=== PATIENT | female | born 1940 | race Caucasian/White ===

== ENCOUNTER 2020-07-11 13:08 | Inpatient (IN) | payer MEDICARE, SELFPAY ==
[2020-07-11] VITALS (12 sets, daily range): BP systolic 116–207; BP diastolic 66–113; PULSE 75–99; RESP 16–18; TEMP 36.2–37.2; O2SAT 95–100; BMI 28.7; BMI 29.2
--- NOTE | 2020-07-11 13:20 | ED.VIS.GEN ---
History of Present Illness Chief Complaint: Abd Pain Informant: Patient Narrative: Patient presented to the emergency department with left lower quadrant abdominal pain and nausea vomiting since last night. The patient states that she is having urinary frequency. She states she has not moved her bowels since a CAT scan on Tuesday. She is not sure why she had the CAT scan but states she was told that if she continues to have problems she should have a colonoscopy. She states that she has had a mass that was not cancerous removed was unsure of where that mass was at. She has never been to this facility before. She sees Dr. Ochoa for primary care. She feels fatigued. Patient recently (06/18/20) saw Dr. Leigh Ann Brooke at [facility] in [place], [place]. She was placed on steroids and she states that she is still on the steroids at this time I cannot tell me how much. Patient has not had her home medications today. Using [employer], I see that in December 2012 she had a laparotomy with resection of a large abdominal pelvic mass, extensive adhesional lysis, low anterior rectosigmoid resection, end-to-end stapled colorectal ostomy, diverting loop ileostomy, upper vaginectomy, omental ectomy, lymphadenectomy and biopsy of a liver nodule. 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 She has had colonoscopy March 2019 with a tubular adenoma. Hernia repair in 2014. EGD 2018 with severe esophagitis and intestinal metaplasia. June 18, 2020 patient was seen by gastroenterology. She was complaining of 6 months of pain in her epigastric area and fullness in the abdomen after eating food. She noted some weight loss. She has noted some rectal incontinence and pressure and had some bright red blood on toilet paper. According to the chart like they felt the pain was due to mesenteric-itis. She was started on prednisone. CT scan done on July 09, 2020 was read as mildly prominent cecum with relatively collapsed remainder of the colon. Oral contrast noted throughout the colon to the level of the rectum. Some noted possibility of a low-grade/partial obstructing process within the proximal ascending colon could not be excluded. Colonic wall thickening was felt to possibly be artifactual versus mild colitis. She has multiple lower thoracic and lumbar compression fractures. In December she had a white blood cell count of 17.6. Past Medical History - Allergies and Home Meds Allergies/Adverse Reactions: Allergies No Known Allergies Allergy (Verified 07/11/20 13:09) Primary Care Physician: Aneta Stewart SHOELACE TIPPING MACHINE OPERATOR, SHOELACE TIPPING MACHINE OPERATOR-C [NON-STAFF] - Review of Systems General: Reports: Malaise. Denies: Chills, Fever, Sweats Eyes: Denies: Visual changes - bilaterally, Diplopia ENT: Denies: Rhinorrhea, Sore throat Cardiovascular: Denies: Chest pain, Palpitations Respiratory: Denies: Dyspnea, Cough, Dyspnea on exertion Gastrointestinal: Reports: Abdominal pain, Nausea, Vomiting, Constipation. Denies: Diarrhea, Melena, Hematochezia Genitourinary: Denies: Dysuria, Hematuria, Frequency Musculoskeletal: Denies: Back pain, Extremity Pain Skin: Denies: Rash, Wounds Neurological: Denies: Headache, Weakness, Numbness Physical Exam Vital Signs/Narrative: Vital Signs Temp Pulse Resp BP Pulse Ox 07/11/20 13:09 97.4 F L 93 16 200/113 H 96 Inital Vital Signs reviewed: Yes General: Well nourished, Well developed, No Acute Distress Head: Normocephalic, Atraumatic Eyes: Perrl, EOMI ENT: Moist mucous membranes, No rhinorrhea Neck: Supple, Nontender Cardiovascular: Regular rate, Regular rhythm, No murmurs Respiratory: No distress, CTA bilaterally, Chest nontender Abdomen: Soft, Nondistended, Normal bowel sounds, Tender - LLQ. Negative for: Guarding, Rebound tenderness Back: Nontender, Normal Inspection Extremities: Nontender, No edema Skin: Normal color, No rash Neurological: Alert, Oriented x3, Cranial nerves II-XII grossly intact, Normal Strength, Normal Sensation Psychological: Normal affect, Normal Mood Diagnostic/Tx/Re-eval Clinical Impression(s) from Imaging Studies Abdomen/Pelvis CT 07/11/20 14:00 IMPRESSION: Mild to moderate degree of left hydronephrosis and left hydroureter due to a 6 mm calculus at the left UV junction. There is also evidence of a 3.2 mm calculus in the distal left ureter. Multiple tiny layering calculi at the base of the bladder. Multiple hepatic cysts. Multiple surgical interventions. Electronically Signed: Dieudonne Agee, at 14:58 EDT , Service support , Laboratory Last Values WBC 41.0 K/mm3 (4.4-11.0) H* 07/11/20 13:31 RBC 6.06 M/mm3 (4.2-5.4) H 07/11/20 13:31 Hgb 16.5 g/dL (12.0-15.0) H 07/11/20 13:31 Hct 51.3 % (37-47) H 07/11/20 13:31 MCV 84.7 fL (81-99) 07/11/20 13:31 MCH 27.2 pg (27.0-32.0) 07/11/20 13:31 MCHC 32.2 g/dL (32-36) 07/11/20 13:31 RDW Std Deviation 44.6 fl (35.1-43.9) H 07/11/20 13:31 RDW Coeff of Ramesh 14.6 % (11.6-14.6) 07/11/20 13:31 Plt Count 191 K/mm3 (150-450) 07/11/20 13:31 MPV 9.6 fl (6.2-12.0) 07/11/20 13:31 Immature Gran % (Auto) 1.200 % (0.0-0.9) H 07/11/20 13:31 Neut % (Auto) 82.6 % (47-70) H 07/11/20 13:31 Lymph % (Auto) 2.4 % (19-41) L 07/11/20 13:31 [place] % (Auto) 13.6 % (0-10) H 07/11/20 13:31 Eos % (Auto) 0.0 % (0-5) 07/11/20 13:31 Baso % (Auto) 0.2 % (0-1) 07/11/20 13:31 Absolute Neuts (auto) 33.9 X10^3/uL (2.0-7.7) H 07/11/20 13:31 Absolute Lymphs (auto) 0.97 X10^3/uL (0.83-4.51) 07/11/20 13:31 Nucleated RBC % 0 % (0-5) 07/11/20 13:31 Differential Comment 07/11/20 13:31 Diff Path Review February07/11/20 13:31 Platelet Estimate ADEQUATE (ADEQ) 07/11/20 13:31 RBC Morphology NORM C+C NORMAL (NORM C&C) 07/11/20 13:31 Sodium 137 mmol/L (136-145) 07/11/20 13:31 Potassium 4.5 mmol/L (3.5-5.1) 07/11/20 13:31 Chloride 102 mmol/L (98-107) 07/11/20 13:31 Carbon Dioxide 31.0 mmol/L (21.0-32.0) 07/11/20 13:31 Anion Gap 4 (5-15) L 07/11/20 13:31 BUN 23 mg/dL (7-18) H 07/11/20 13:31 Creatinine 1.18 mg/dL (0.55-1.02) H 07/11/20 13:31 Estim Creat Clear Calc 27.31 ml/min 07/11/20 13:31 Est GFR (MDRD) Af Amer 57 mL/min (>60) L 07/11/20 13:31 Est GFR (MDRD) Non-Af 47 mL/min (>60) L 07/11/20 13:31 BUN/Creatinine Ratio 19.5 RATIO (10-20) 07/11/20 13:31 Glucose 144 mg/dL (74-106) H 07/11/20 13:31 Lactic Acid 1.2 mmol/L (0.4-1.9) 07/11/20 16:50 Calcium 9.6 mg/dL (8.5-10.1) 07/11/20 13:31 Total Bilirubin 1.00 mg/dL (0.20-1.00) 07/11/20 13:31 AST 33 U/L (15-37) 07/11/20 13:31 ALT 38 U/L (13-56) 07/11/20 13:31 Alkaline Phosphatase 108 U/L (45-117) 07/11/20 13:31 Total Protein 8.8 g/dL (6.4-8.2) H 07/11/20 13:31 Albumin 4.2 g/dL (3.2-5.0) 07/11/20 13:31 Globulin 4.6 g/dL (2.2-4.2) H 07/11/20 13:31 Albumin/Globulin Ratio 0.9 RATIO (0.9-2.4) 07/11/20 13:31 Lipase 144 U/L (73-393) 07/11/20 13:31 Urine Color Yellow (Yellow) 07/11/20 14:55 Urine Clarity Clear (Clear) 07/11/20 14:55 Urine pH 7.0 (5.0 - 8.0) 07/11/20 14:55 Ur Specific [place] 1.005 (1.002-1.030) 07/11/20 14:55 Urine Protein 30 mg/dl (Negative) H 07/11/20 14:55 Urine Glucose (UA) Normal mg/dl (Normal) 07/11/20 14:55 Urine Ketones Negative mg/dl (Negative) 07/11/20 14:55 Urine Occult Blood 10 /ul (Negative) H 07/11/20 14:55 Urine Nitrite Negative (Negative) 07/11/20 14:55 Urine Bilirubin Negative mg/dL (Negative) 07/11/20 14:55 Urine Urobilinogen Normal mg/dl (Normal) 07/11/20 14:55 Ur Leukocyte Esterase Negative /ul (Negative) 07/11/20 14:55 Urine RBC 0-5 SEEN /hpf (0-5) 07/11/20 14:55 Urine WBC 0-5 SEEN /hpf (0-5) 07/11/20 14:55 Ur Squamous Epith Cells 0 SEEN /hpf (5-10) 07/11/20 14:55 Urine Bacteria RARE /hpf (None Seen) 07/11/20 14:55 Urine Mucus 0 SEEN /hpf (<or=2+) 07/11/20 14:55 - Medical Decision Making Patient received couple doses of morphine without significant improvement of her pain. Toradol was given. Her white count is substantially elevated at 41,000. Please see above for the differential. Her urinalysis does not show an obvious infection. Creatinine is 1.1. CT demonstrates a 6 mm calculus at the left UVJ followed by 3.2 mm calculus in the distal left ureter. There is a moderate degree of left hydronephrosis and hydroureter. Due to the patient's substantially elevated white count and the ureteral lithiasis patient received Rocephin. I was able to contact Dr. Sharp urology who would like to take the patient to the operating room. Medicine is going to admit. Initially labetalol was ordered for her hypertension but she is come down on her own. ED Disposition - Plan for ED Patient: Disposition: Acute Care Hospital [facility] Diagnosis: Vomiting, Leukocytosis, Ureterolithiasis, Renal colic on left side Referrals: Aneta Stewart SHOELACE TIPPING MACHINE OPERATOR, SHOELACE TIPPING MACHINE OPERATOR-C [NON-STAFF] -
[2020-07-11] MEDS: 0.9% Normal Saline 1,000 ML 1000 ML IV (13:38)
[2020-07-11] MEDS: Ondansetron 4 MG/2 ML Vial IV ×2 (13:40→14:56)
[2020-07-11 13:41] LABS: Absolute Lymphocyte Count 0.97 X10^3/uL (0.83-4.51); Absolute Neutrophil Count 33.9 X10^3/uL (2.0-7.7); Basophil# 0.08 X10^3/uL; Basophil% 0.2 % (0-1); Hematocrit 51.3 % (37-47); Hemoglobin 16.5 g/dL (12.0-15.0); Lymphocyte # 0.97 X10^3/ul (4.0); Lymphocyte % 2.4 % (19-41); Mean Corp Hgb Conc 32.2 g/dL (32-36); Mean Corpuscular Hgb 27.2 pg (27.0-32.0); Mean Corpuscular Volume 84.7 fL (81-99); Mean Platelet Vol. 9.6 fl (6.2-12.0); Monocyte# 5.58 X10^3/uL; Monocyte% 13.6 % (0-10); NRBC Flagged by Analyzer 0 % (0-5); Neutrophil # 33.89 X10^3/uL (2.7-7.7); Neutrophil % 82.6 % (47-70); POSITIVE COUNT YES; POSITIVE DIFFERENTIAL YES; Platelet Count 191 K/mm3 (150-450); RBC Distribution Width CV 14.6 % (11.6-14.6); RBC Distribution Width SD 44.6 fl (35.1-43.9); Red Blood Count 6.06 M/mm3 (4.2-5.4)
[2020-07-11] MEDS: Morphine 2 MG/ML Syringe IV (13:41)
[2020-07-11 13:48] LABS: Differential Indicated SCAN CRITERIA MET
[2020-07-11 13:57] LABS: ALB/GLOB Ratio 0.9 RATIO (0.9-2.4); AST(SGOT) 33 U/L (15-37); Alanine Aminotransfer ALT/SGPT 38 U/L (13-56); Albumin, Serum 4.2 g/dL (3.2-5.0); Alkaline Phosphatase 108 U/L (45-117); Anion Gap 4 (5-15); BUN 23 mg/dL (7-18); BUN/Creat Ratio 19.5 RATIO (10-20); Calcium,Total 9.6 mg/dL (8.5-10.1); Chloride 102 mmol/L (98-107); Creatinine, Serum 1.18 mg/dL (0.55-1.02); EST Glomerular Filtration Rate 47 mL/min (>60); Est Glom Filt Rate - Afr Amer 57 mL/min (>60); Estimated Creatinine Clearance 27.31 ml/min; Globulin 4.6 g/dL (2.2-4.2); Glucose 144 mg/dL (74-106); Lipase 144 U/L (73-393); Potassium 4.5 mmol/L (3.5-5.1); Protein, Total 8.8 g/dL (6.4-8.2); Sodium Level 137 mmol/L (136-145)
--- NOTE | 2020-07-11 14:00 | CT_ITS ---
STUDY: CT ABDOMEN AND PELVIS WITH CONTRAST REASON FOR EXAM: Female, 80 years old. LLQ PAIN, NAUSEA/VOMITING. POSSIBLE PARTIAL SBO ON TUESDAY. -- MULTIPLE ABD SURGERIES-HYSTERECTOMY, CHOLECYSTECTOMY, APPENDECTOMY, HERNIA REPAIR, LAPAROTOMY LARGE PELVIC MASS, EXTESNSIVE ADHESIONALLYSIS, LOW ANTERIOR RECTOSIGMOID RESECTION, COLORECTAL OSTOMY, UPPER VAGINECTOMY, OMENTALECTOMY, LYPHADENECTOM RADIATION DOSAGE (If Supplied By Facility): CTDIvol = ( 14.35 ) mGy, DLP = ( 852.42 ) mGycm TECHNIQUE: Transaxial images were obtained from the dome of the diaphragm to the symphysis pubis without oral contrast. IV 100mL Isovue-300 was administered. Sagittal and coronal images were reconstructed. Individualized dose optimization techniques were used for this CT. COMPARISON: None. FINDINGS: Tiny left pleural effusion with mild left basilar atelectasis. Coronary artery calcification. Small scattered hepatic cysts in the right lobe. There are surgical clips in the gallbladder fossa consistent with a prior cholecystectomy. Normal spleen. Normal pancreas. Normal bilateral adrenal glands. There is a 5.5 mm nonobstructive calculus in the upper pole calyx of the right kidney. There is a 5.2 cm x 5.5 cm cyst in the posterior aspect of the lower pole of the right kidney. Mild degree of left hydronephrosis and hydroureter due to a 6 mm calculus at the left ureterovesical junction. There is also evidence of a 3.2 mm calculus in the distal left ureter. There is evidence of left perinephric stranding. There is a 2.3 cm cyst in the mid anterior portion of the left kidney. There is a small hiatal hernia with an air-fluid level. Normal small intestine. Normal colon. There are surgical clips in the region of the appendix consistent with a prior appendectomy. There is diffuse atherosclerotic calcification of the abdominal aorta, without a demonstrated aneurysm. Normal inferior vena cava. Normal retroperitoneum. Multiple small layering calculi are seen along the dependent portion of the urinary bladder. There is absence of the uterus consistent with a prior hysterectomy. There is evidence of a mesh repair of a midline ventral hernia. Diffuse osteopenia. Prior vertebroplasty of the L1 vertebrae. Multiple compression fractures of the lumbar spine. These most likely are chronic in nature. CT/Abdomen/Pelvis W IV Cont ONLY IMPRESSION: Mild to moderate degree of left hydronephrosis and left hydroureter due to a 6 mm calculus at the left UV junction. There is also evidence of a 3.2 mm calculus in the distal left ureter. Multiple tiny layering calculi at the base of the bladder. Multiple hepatic cysts. Multiple surgical interventions. Electronically Signed: Dieudonne Agee, at 14:58 EDT , Service support ,
[2020-07-11 14:17] LABS: Platelet Estimate ADEQUATE (ADEQ); Red Cell Morphology NORM C+C NORMAL (NORM C&C)
[2020-07-11] MEDS: Morphine 4 MG/ML Syringe IV (14:57)
[2020-07-11 15:00] LABS: Mucous, Urine 0 SEEN /hpf (<or=2+); Squamous Epithelial Cells - UA 0 SEEN /hpf (5-10)
[2020-07-11] MEDS: 0.9% Normal Saline 1,000 ML 150 ML IV (15:25)
[2020-07-11 15:29] LABS: Color, Urine Yellow (Yellow); Glucose, Dipstick Normal (Normal); Ketone-Dipstick Negative (Negative); Leukocyte Esterase-Dipstick Negative /ul (Negative); Nitrite-Dipstick Negative (Negative); Occult Blood-Urine 10 /ul (Negative); Protein-Dipstick 30 mg/dl (Negative); Specific Gravity, Urine 1.005 (1.002-1.030); Urine Bilirubin Dipstick Negative (Negative); Urine Clarity Clear (Clear); Urine Urobilinogen Normal (Normal)
[2020-07-11 15:59] LABS: Red Blood Cells-Urine 0-5 SEEN /hpf (0-5); White Blood Cells 0-5 SEEN /hpf (0-5)
[2020-07-11 16:00] LABS: Bacteria RARE /hpf (None Seen)
[2020-07-11] MEDS: Ketorolac 15 MG/ML Vial IV (16:45)
[2020-07-11 17:31] LABS: Lactic Acid 1.2 mmol/L (0.4-1.9)
--- NOTE | 2020-07-11 17:46 | HP.PCM_ITS ---
History of Present Illness Date of Admission: 07/11/20 Chief Complaint: Lower back pain, dysuria, nausea/vomiting. The patient is a 80 year old F who presents the emergency room due to lower back pain which has been ongoing for 1 week. Back pain worse on left side. Over the past two days, patient reports dysuria, chills and nausea and vomiting. She denies fever. Denies abdominal pain. Denies other associated symptoms or complaints. She has a past medical history of GERD, hypertension, mesenteritis, history of benign abdominal mass status post resection. She denies history of kidney stones. Past Medical History Allergies No Known Allergies Allergy (Verified 07/11/20 13:09) Home Medications: Ambulatory Orders Medication Instructions Recorded Clobetasol Propionate/Emoll 1 applic TP PRN PRN 07/11/20 [Clobetasol Emollient 0.05% Crm] Diphenoxylate HCl/Atropine 1 ea PO 4X/DAY PRN PRN 07/11/20 [Lomotil 2.5-0.025 mg Tablet] Labetalol [Trandate] 50 mg PO BID 07/11/20 Multivit with Iron,Minerals 1 ea PO DAILY 07/11/20 [Complete Senior] Omeprazole 20 mg PO DAILY 07/11/20 Polyethylene Glycol 3350 [Miralax] 17 gm PO DAILY PRN PRN 07/11/20 Prednisone 20 mg PO DAILY 07/11/20 Surgical History: cholecystectomy, hysterectomy, tonsillectomy, - - Abdominal mass resection, cataract surgery. Psychiatric History: No pertinent psych hx SENIOR SALES ASSISTANT History: No pertinent SENIOR SALES ASSISTANT history Lives: Spouse/ Significant Other Smoking Status: Never smoker Alcohol: None Drugs: None - *Family History Maternal History Items: Stroke Paternal History Items: Cancer, Heart Disease Review of Systems Constitutional: Reports: Chills, Malaise. Denies: Fever HEENT: Denies: Head Aches, Sinus Congestion, Sinus Drainage Cardiovascular: Denies: Chest Pain, Palpitations Respiratory: Denies: Cough, Shortness of breath at rest, Sputum production Gastrointestinal: Reports: Nausea, Vomiting. Denies: Constipation, Diarrhea Genitourinary: Reports: Dysuria, - - Left flank pain. Denies: Hematuria, Incontinence Musculoskeletal: Denies: Joint Pain, Joint Tenderness Skin: Denies: Rash, Wounds Neurological: Denies: Numbness, Tingling, Focal weakness Psychiatric: Denies: Anxiety, Depression, Homicidal Ideations, Suicidal Ideations Hematologic/ Lymphatic: Denies: Easy Bruising, Easy Bleeding VTE Information - Inpt Only VTE Present on Admission: No VTE Mechan Device Prophylaxis: None VTE Pharm Prophylaxis ordered?: Yes Patient Problems: Active and Suspected Problems Vomiting (Acute) Leukocytosis (Acute) Ureterolithiasis (Acute) Renal colic on left side (Acute) - Physical Exam Vitals/I&O's: Vital Signs Temp Pulse Resp BP Pulse Ox 97.7 F L 96 16 148/88 H 98 07/11/20 17:08 07/11/20 17:08 07/11/20 17:08 07/11/20 17:08 07/11/20 17:08 Oxygen Delivery Method Room Air Weight: 147 lb Body Mass Index (BMI) 28.7 Intake and Output for Last 24 Hours 07/09/20 07/10/20 07/11/20 23:59 23:59 23:59 Intake Total 1000 / 1000 Balance 1000 / 1000 General: Alert, Oriented x3, Cooperative HEENT: Atraumatic, PERRLA, EOMI, Normocephalic Oral: Dry Mucosa Neck: Supple, No JVD, Negative Carotid Bruits Lungs: Clear to auscultation, Diminished Cardiovascular: Regular rate, No murmurs Abdomen: Bowel Sounds Present, Soft, Non Tender Extremities: No clubbing, No cyanosis, No edema, Capillary Refill Less than 3 Seconds Skin: No rashes, No breakdown Musculoskeletal: No Tenderness to Palpation of Joints or Extremities Neurological: Cranial nerves II-XII grossly intact, Neuro grossly intact Psych/Mental Status: Normal Affect, Appropriate Laboratory Results 07/11/20 13:31: WBC 41.0 H*, RBC 6.06 H, Hgb 16.5 H, Hct 51.3 H, MCV 84.7, MCH 27.2, MCHC 32.2, RDW Std Deviation 44.6 H, RDW Coeff of Ramesh 14.6, Plt Count 191, MPV 9.6, Immature Gran % (Auto) 1.200 H, Neut % (Auto) 82.6 H, Lymph % (Auto) 2.4 L, [place] % (Auto) 13.6 H, Eos % (Auto) 0.0, Baso % (Auto) 0.2, Absolute Neuts (auto) 33.9 H, Absolute Lymphs (auto) 0.97, Nucleated RBC % 0, Differential C omment , Diff Path Review February foll, Platelet Estimate ADEQUATE, RBC Morphology NORM C+C 07/11/20 13:31: Sodium 137, Potassium 4.5, Chloride 102, Carbon Dioxide 31.0, Anion Gap 4 L, BUN 23 H, Creatinine 1.18 H, Estim Creat Clear Calc 27.31, Est GFR (MDRD) Af Amer 57 L, Est GFR (MDRD) Non-Af 47 L, BUN/Creatinine Ratio 19.5, Glucose 144 H, Calcium 9.6, Total Bilirubin 1.00, AST 33, ALT 38, Alkaline Phosphatase 108, Total Protein 8.8 H, Albumin 4.2, Globulin 4.6 H, Albumin/Globulin Ratio 0.9, Lipase 144 07/11/20 14:55: Urine Color Yellow, Urine Clarity Clear, Urine pH 7.0, Ur Specific [place] 1.005, Urine Protein 30 H, Urine Glucose (UA) Normal, Urine Ketones Negative, Urine Occult Blood 10 H, Urine Nitrite Negative, Urine Bilirubin Negative, Urine Urobilinogen Normal, Ur Leukocyte Esterase Negative, Urine RBC 0-5 SEEN, Urine WBC 0-5 SEEN, Ur Squamous Epith Cells 0 SEEN, Urine Bacteria RARE, Urine Mucus 0 SEEN 07/11/20 16:50: Lactic Acid 1.2 Current Medications Sodium Chloride () 1,000 mls @ 150 mls/hr IV .Q6H40M [facility] Last Admin: 07/11/20 15:25 Dose: 150 mls/hr Documented by: Assessment/Plan All Active Problems Vomiting (Acute) Leukocytosis (Acute) Ureterolithiasis (Acute) Renal colic on left side (Acute) 1. Sepsis secondary to ureterolithiasis-WBC 41. Mildly tachycardic. Lactic acid normal. Patient reports history of leukocytosis with no known etiology. Trend CBC. Treatment per below. 2. Left renal colic-secondary to 6 mm calculus at the left UV junction causing left hydronephrosis and left hydroureter. Urology consulted. Plan for surgical intervention tonight. IV Rocephin. Urine and blood cultures pending. 3. Hypertensive urgency-elevated on admission, suspect secondary to pain. Continue home labetalol regimen. PRN hydralazine for systolic blood pressure greater than 160. 4. Mildly elevated creatinine-secondary to #2. No acute kidney injury. Trend BMP. 5. GERD-continue PPI. 6. Mesenteritis-on prednisone. DVT prophylaxis-Lovenox subcu This patient was seen by MARIA R Pierce under the supervision of Dr. Jorge.
[2020-07-11 18:15] LABS: Partial Thromboplast Time 22.5 Seconds (24.1-36.2); Prothrombin Time (Protime)PT. 12.3 SECONDS (11.7-14.9)
--- NOTE | 2020-07-11 18:42 | CON.PCM_ITS ---
Problem List (1) Leukocytosis Status: Acute (2) Ureterolithiasis Status: Acute (3) Renal colic on left side Status: Acute Reason for Consult Date of Consultation: 07/11/20 Reason for Consultation: ureteral calculus, hydronephrosis and leukocytosis History of Present Illness: The patient is a 80 year old F with few days of left flank pain, nausea and vomiting. Chills but no fever, increased urinary urgency and some dysuria. No hematuria. No history of stones in the past. Had CT done at outlying institution showing bladder stones, CT repeated here with distal left ureteral stones and hydronephrosis. Past Medical History Allergies No Known Allergies Allergy (Verified 07/11/20 13:09) Home Medications: Ambulatory Orders Medication Instructions Recorded Clobetasol Propionate/Emoll 1 applic TP PRN PRN 07/11/20 [Clobetasol Emollient 0.05% Crm] Diphenoxylate HCl/Atropine 1 ea PO 4X/DAY PRN PRN 07/11/20 [Lomotil 2.5-0.025 mg Tablet] Labetalol [Trandate] 50 mg PO BID 07/11/20 Multivit with Iron,Minerals 1 ea PO DAILY 07/11/20 [Complete Senior] Omeprazole 20 mg PO DAILY 07/11/20 Polyethylene Glycol 3350 [Miralax] 17 gm PO DAILY PRN PRN 07/11/20 Prednisone 20 mg PO DAILY 07/11/20 Surgical History: cholecystectomy, hysterectomy, tonsillectomy, - - Abdominal mass resection, cataract surgery. 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 Denies: Fever Eyes: Denies: Vision Change HEENT: Denies: Visual Changes Cardiovascular: Denies: Chest Pain Respiratory: Denies: Cough Gastrointestinal: Reports: Abdominal Pain, Constipation, Nausea, Vomiting Genitourinary: Reports: Dysuria, Frequency, Urgency. Denies: Hematuria, Incontinence Musculoskeletal: Denies: Muscle pain Skin: Denies: Wounds Neurological: Denies: Difficulty swallowing Patient Problems: Active and Suspected Problems Vomiting (Acute) Leukocytosis (Acute) Ureterolithiasis (Acute) Renal colic on left side (Acute) - Physical Exam Vitals/I&O's: Vital Signs Temp Pulse Resp BP Pulse Ox 97.7 F L 99 18 134/92 H 95 07/11/20 18:32 07/11/20 18:32 07/11/20 18:32 07/11/20 18:32 07/11/20 18:32 Oxygen Delivery Method Room Air Weight: 66.678 kg Body Mass Index (BMI) 28.7 Intake and Output for Last 24 Hours 07/09/20 07/10/20 07/11/20 23:59 23:59 23:59 Intake Total 1000 / 1000 Balance 1000 / 1000 General: Alert, Oriented x3, Cooperative, No apparent distress HEENT: Atraumatic, Normocephalic Oral: Moist Mucosa Neck: Supple, Trachea Midline Lungs: Normal air movement Abdomen: Soft, Tender Skin: No rashes Musculoskeletal: No Muscle Wasting Neurological: Cranial nerves II-XII grossly intact Psych/Mental Status: Normal Affect, Alert and oriented to time, place, person, mood and affect Laboratory Results 07/11/20 13:31: WBC 41.0 H*, RBC 6.06 H, Hgb 16.5 H, Hct 51.3 H, MCV 84.7, MCH 27.2, MCHC 32.2, RDW Std Deviation 44.6 H, RDW Coeff of Ramesh 14.6, Plt Count 191, MPV 9.6, Immature Gran % (Auto) 1.200 H, Neut % (Auto) 82.6 H, Lymph % (Auto) 2.4 L, [place] % (Auto) 13.6 H, Eos % (Auto) 0.0, Baso % (Auto) 0.2, Absolute Neuts (auto) 33.9 H, Absolute Lymphs (auto) 0.97, Nucleated RBC % 0, Differential Comment , Diff Path Review May foll, Platelet Estimate ADEQUATE, RBC Morphology NORM C+C 07/11/20 13:31: Sodium 137, Potassium 4.5, Chloride 102, Carbon Dioxide 31.0, Anion Gap 4 L, BUN 23 H, Creatinine 1.18 H, Estim Creat Clear Calc 27.31, Est GFR (MDRD) Af Amer 57 L, Est GFR (MDRD) Non-Af 47 L, BUN/Creatinine Ratio 19.5, Glucose 144 H, Calcium 9.6, Total Bilirubin 1.00, AST 33, ALT 38, Alkaline Phosphatase 108, Total Protein 8.8 H, Albumin 4.2, Globulin 4.6 H, Albumin/Globulin Ratio 0.9, Lipase 144 07/11/20 13:31: PT 12.3, INR 1.0, APTT 22.5 L 07/11/20 14:55: Urine Color Yellow, Urine Clarity Clear, Urine pH 7.0, Ur Specific [place] 1.005, Urine Protein 30 H, Urine Glucose (UA) Normal, Urine Ketones Negative, Urine Occult Blood 10 H, Urine Nitrite Negative, Urine Bilirubin Negative, Urine Urobilinogen Normal, Ur Leukocyte Esterase Negative, Urine RBC 0-5 SEEN, Urine WBC 0-5 SEEN, Ur Squamous Epith Cells 0 SEEN, Urine Bacteria RARE, Urine Mucus 0 SEEN 07/11/20 16:50: Lactic Acid 1.2 Current Medications Sodium Chloride () 1,000 mls @ 150 mls/hr IV .Q6H40M [facility] Last Admin: 07/11/20 15:25 Dose: 150 mls/hr Documented by: Assessment/Plan All Active Problems Vomiting (Acute) Leukocytosis (Acute) Ureterolithiasis (Acute) Renal colic on left side (Acute) admit to medicine, antibiotics and supportive care to OR for cystoscopy and left ureteral stent insertion at bedside, consent obtained Procedure Criteria COVID Risk Discussion: we discussed the risks due to COVID-19, this case is not considered elective, and if not done, puts the patient's life at risk from obstructive uropathy and sepsis.
--- NOTE | 2020-07-11 18:53 | PCM.OPRPT ---
Problem List (1) Leukocytosis Status: Acute (2) Ureterolithiasis Status: Acute (3) Renal colic on left side Status: Acute Report of Operation Date of Procedure: 07/11/20 Pre-Operative Diagnosis: left ureteral calculus with hydronephrosis Post-Operative Diagnosis: same Surgery/Procedure Performed:: cystoscopy left ureteral stent insertion Type of Anesthesia:: MAC Specimen's removed: bladder stones Description of Procedure: The patient is 80yo female presented to the ER with leukocytosis and left ureteral obstruction due to distal stones. Informed consent was obtained for cystoscopy and left ureteral stent insertion. The patient was taken to the operating room and placed on the operating room table. Anesthesia monitored the head, neck, IV, vital signs and airway throughout the case. Once anesthesia was appropriately administered, she was placed into dorsal lithotomy position and was prepped and draped in usual sterile fashion. A cystoscopy was performed through the urethra. On the floor of the bladder, at least 50 1mm bladder stones were immediately visible. The left ureteral orifice was intubated with a .035 glidewire, and a 6x24 JJ stent was inserted without difficulty under fluoroscopic visualization. The stent had good curl in the renal pelvis and urinary bladder. The stent immediately drained purulent bloody urine. An 18Fr olvera catheter was inserted with 10cc in the balloon after several of the stones were emptied when I drained bladder with the cystoscope. The patient was then awakened and taken to the recovery room in good conditions. There were no complications during this procedure. Grafts/Implants Used: 6x24 JJ stent - Complications none - Admit VTE Documentation VTE Present on Admission: Yes VTE Mechan Device Prophylaxis: SCD's VTE Pharm Prophylaxis ordered?: Yes
[2020-07-11] MEDS: 0.9% Normal Saline 1,000 ML 125 ML IV (20:56)
[2020-07-11] MEDS: Labetalol 100 MG Tablet 50 MG PO (22:16)
[2020-07-12 02:00] VITALS: BP 134/63; PULSE 70; RESP 18; TEMP 36.5; O2SAT 97; BMI 28.7
[2020-07-12] MEDS: 0.9% Normal Saline 1,000 ML 125 ML IV ×3 (05:08→22:20)
[2020-07-12 05:14] VITALS: BP 135/60; PULSE 66; RESP 16; TEMP 36.5; O2SAT 97; BMI 28.7
[2020-07-12 07:13] LABS: Absolute Lymphocyte Count 2.24 X10^3/uL (0.83-4.51); Absolute Neutrophil Count 16.7 X10^3/uL (2.0-7.7); Basophil# 0.06 X10^3/uL; Basophil% 0.3 % (0-1); Eosinophil# 0.07 X10^3/uL; Eosinophils% 0.3 % (0-5); Hematocrit 40.3 % (37-47); Hemoglobin 12.2 g/dL (12.0-15.0); Lymphocyte # 2.24 X10^3/ul (4.0); Lymphocyte % 10.1 % (19-41); Mean Corp Hgb Conc 30.3 g/dL (32-36); Mean Corpuscular Hgb 26.7 pg (27.0-32.0); Mean Corpuscular Volume 88.2 fL (81-99); Mean Platelet Vol. 10.2 fl (6.2-12.0); Monocyte# 3.02 X10^3/uL; Monocyte% 13.6 % (0-10); NRBC Flagged by Analyzer 0 % (0-5); Neutrophil # 16.73 X10^3/uL (2.7-7.7); Neutrophil % 75.1 % (47-70); POSITIVE DIFFERENTIAL YES; Platelet Count 155 K/mm3 (150-450); RBC Distribution Width SD 48.8 fl (35.1-43.9); Red Blood Count 4.57 M/mm3 (4.2-5.4); White Blood Count 22.3 K/mm3 (4.4-11.0)
--- NOTE | 2020-07-12 07:29 | PN_ITS ---
Patient Problems: Active and Suspected Problems Vomiting (Acute) Leukocytosis (Acute) Ureterolithiasis (Acute) Renal colic on left side (Acute) Reason for Visit: Nephrolithiasis Sepsis Subjective: Patient is an 80-year-old lady who presented with low back pain dysuria with associated nausea and vomiting. CT of the abdomen demonstrated Mild to moderate degree of left hydronephrosis and left hydroureter due to a 6 mm calculus at the left UV junction. There is also evidence of a 3.2 mm calculus in the distal left ureter. Patient was also found to have markedly elevated WBC count of 41. An assessment of sepsis secondary to suspected acute pyelonephritis as a result of nephrolithiasis made antibiotics initiated per protocol consultation placed to urology patient admitted to regular nursing floor. Objective: GENERAL: cooperative HEENT: Atraumatic; EYES; Anicteric, Normal Conjunctiva NECK; supple, normal thyroid, RESPIRATORY: Diminished to auscultation CARDIOVASCULAR: Regular S1 S2, GI: Periumbilical tenderness : No Renal angle tenderness; EXTREMITIES: No edema, no clubbing, MUSCULOSKELETAL: no muscle waisting NEURO: Awake; no lateralizing signs. SKIN: No Rash PSYCH; Flat affect Vitals/I&O's: Vital Signs Temp Pulse Resp BP Pulse Ox 97.7 F L 66 16 135/60 H 97 07/12/20 05:14 07/12/20 05:14 07/12/20 05:14 07/12/20 05:14 07/12/20 05:14 Oxygen Delivery Method Room Air Weight: 66.678 kg Body Mass Index (BMI) 28.7 Intake and Output for Last 24 Hours 07/10/20 07/11/20 07/12/20 23:59 23:59 23:59 Intake Total 1880 / 1880 1000 / 1000 Output Total 25 / 275 700 / 700 Balance 1855 / 1605 300 / 300 Laboratory Results 07/11/20 13:31: WBC 41.0 H*, RBC 6.06 H, Hgb 16.5 H, Hct 51.3 H, MCV 84.7, MCH 27.2, MCHC 32.2, RDW Std Deviation 44.6 H, RDW Coeff of Ramesh 14.6, Plt Count 191, MPV 9.6, Immature Gran % (Auto) 1.200 H, Neut % (Auto) 82.6 H, Lymph % (Auto) 2.4 L, [place] % (Auto) 13.6 H, Eos % (Auto) 0.0, Baso % (Auto) 0.2, Absolute Neuts (auto) 33.9 H, Absolute Lymphs (auto) 0.97, Nucleated RBC % 0, Differential Comment , Diff Path Review May foll, Platelet Estimate ADEQUATE, RBC Morphology NORM C+C 07/11/20 13:31: Sodium 137, Potassium 4.5, Chloride 102, Carbon Dioxide 31.0, Anion Gap 4 L, BUN 23 H, Creatinine 1.18 H, Estim Creat Clear Calc 27.31, Est GFR (MDRD) Af Amer 57 L, Est GFR (MDRD) Non-Af 47 L, BUN/Creatinine Ratio 19.5, Glucose 144 H, Calcium 9.6, Total Bilirubin 1.00, AST 33, ALT 38, Alkaline Phosphatase 108, Total Protein 8.8 H, Albumin 4.2, Globulin 4.6 H, Albumin/Globulin Ratio 0.9, Lipase 144 07/11/20 13:31: PT 12.3, INR 1.0, APTT 22.5 L 07/11/20 14:55: Urine Color Yellow, Urine Clarity Clear, Urine pH 7.0, Ur Specific [place] 1.005, Urine Protein 30 H, Urine Glucose (UA) Normal, Urine Ketones Negative, Urine Occult Blood 10 H, Urine Nitrite Negative, Urine Bilirubin Negative, Urine Urobilinogen Normal, Ur Leukocyte Esterase Negative, Urine RBC 0-5 SEEN, Urine WBC 0-5 SEEN, Ur Squamous Epith Cells 0 SEEN, Urine Bacteria RARE, Urine Mucus 0 SEEN 07/11/20 16:50: Lactic Acid 1.2 07/11/20 : Stone Source Pending, Stone Size Pending, Stone Weight Pending, Stone Color Pending 07/12/20 06:15: WBC Pending, RBC Pending, Hgb Pending, Hct Pending, MCV Pending, MCH Pending, MCHC Pending, RDW Std Deviation Pending, RDW Coeff of Ramesh Pending, Plt Count Pending, Neut % (Auto) Pending, Absolute Neuts (auto) Pending 07/12/20 06:15: Sodium Pending, Potassium Pending, Chloride Pending, Carbon Dioxide Pending, Anion Gap Pending, BUN Pending, Creatinine Pending, Est GFR (MDRD) Af Amer Pending, Est GFR (MDRD) Non-Af Pending, BUN/Creatinine Ratio Pending, Glucose Pending, Calcium Pending Current Medications Acetaminophen (Tylenol) 650 mg PO Q4H PRN PRN PRN Reason: fever, pain 1-10/10 Albuterol Sulfate (Ventolin Aerosols) 2.5 mg INHALATION Q2H PRN PRN PRN Reason: Dyspnea, wheezing Heparin Sodium (Porcine) (Heparin Na) 5,000 unit SC Q12 [facility] Hydralazine HCl (Apresoline Iv) 10 mg IV Q4H PRN PRN PRN Reason: SBP > 160 Ceftriaxone Sodium 2 gm/ (Sodium Chloride) 50 mls @ 100 mls/hr IV Q24 [facility] Sodium Chloride () 1,000 mls @ 125 mls/hr IV .Q8H [facility] Last Admin: 07/12/20 05:08 Dose: 125 mls/hr Documented by: Labetalol HCl (Trandate) 50 mg PO BID [facility] Last Admin: 07/11/20 22:16 Dose: 50 mg Documented by: Morphine Sulfate () 2 - 4 mg IV Q4H PRN PRN PRN Reason: pain 6-10/10 Ondansetron HCl (Zofran) 4 mg IV Q6H PRN PRN PRN Reason: NAUSEA/VOMITING Oxycodone HCl (Oxyir) 5 mg PO Q4H PRN PRN PRN Reason: Pain Score 6-10/10 Pantoprazole Sodium (Protonix) 20 mg PO DAILY [facility] Prednisone () 20 mg PO DAILY@0800 [facility] STROKE Vital Signs/Narrative: Vital Signs Temp Pulse Resp BP Pulse Ox 07/12/20 05:14 97.7 F L 66 16 135/60 H 97 Medical Necessity - Tobacco Use Smoking Status: Never smoker Assessment/Plan All Active Problems Vomiting (Acute) Leukocytosis (Acute) Ureterolithiasis (Acute) Renal colic on left side (Acute) Patient is an 80-year-old lady who presented with low back pain dysuria with associated nausea and vomiting. CT of the abdomen demonstrated Mild to moderate degree of left hydronephrosis and left hydroureter due to a 6 mm calculus at the left UV junction. There is also evidence of a 3.2 mm calculus in the distal left ureter. Patient was also found to have markedly elevated WBC count of 41. An assessment of sepsis secondary to suspected acute pyelonephritis as a result of nephrolithiasis made antibiotics initiated per protocol consultation placed to urology patient admitted to regular nursing floor. 1. Sepsis Secondary to suspected acute pyelonephritis from nephrolithiasis. Started on antibiotics cultures sent 2. Nephrolithiasis ?CT demonstrated Mild to moderate degree of left hydronephrosis and left hydroureter due to a 6 mm calculus at the left UV junction. There is also evidence of a 3.2 mm calculus in the distal left ureter consult was placed with Dr. Sharp patient underwent cystoscopy left ureteral stent insertion 1120 3. Essential hypertension ?Patient blood pressure was elevated on admission this was thought to be secondary to pain. Patient blood pressure has since stabilized 4. 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 GERD ?EGD in 2019 apparently demonstrated severe esophagitis as well as intestinal metaplasia. Patient on PPI 7. DVT prophylaxis ?SC heparin Advance planning; did discuss with the patient and family regarding advanced directives as well as CODE STATUS. Did explain the various scenarios involved ( FULL CODE, DNR CCA, DNR CCA with no intubation, and DNR CC and what each meant) patient elected to remain full code with CPR and intubation if warranted order was placed. Time spent on discussion 18 minutes. Inpatient E&M: 90265 Subs Hosp L2 Procedures: 25538 Advncd Care Plan 30 Min
[2020-07-12 08:14] LABS: Anion Gap 7 (5-15); BUN 23 mg/dL (7-18); Calcium,Total 8.3 mg/dL (8.5-10.1); Chloride 108 mmol/L (98-107); Creatinine, Serum 1.15 mg/dL (0.55-1.02); EST Glomerular Filtration Rate 48 mL/min (>60); Est Glom Filt Rate - Afr Amer 58 mL/min (>60); Estimated Creatinine Clearance 28.03 ml/min; Glucose 83 mg/dL (74-106); Potassium 3.7 mmol/L (3.5-5.1); Sodium Level 140 mmol/L (136-145)
[2020-07-12 08:18] LABS: Differential Indicated SCAN CRITERIA MET
[2020-07-12 09:37] VITALS: BP 140/59; PULSE 76; RESP 18; TEMP 37; O2SAT 98
[2020-07-12] MEDS: predniSONE 20 MG Tablet PO (09:41)
[2020-07-12] MEDS: Heparin Injection (Vial) 5,000 UNIT/ML VIAL 5000 UNIT SC ×2 (09:41→20:50)
[2020-07-12] MEDS: Pantoprazole Sodium 20 MG Tablet PO (09:41)
[2020-07-12] MEDS: Labetalol 100 MG Tablet 50 MG PO ×2 (09:42→20:50)
--- NOTE | 2020-07-12 10:48 | CASEMGMT ---
JACOB URENA assessment: Face to Face with patient for initial transition planning/care coordination assessment. JACOB URENA introduced self and role at [facility], pt voices understanding and consents to assessment at this time. Pt is sitting up in bed in no distress at this time. Pt is A/Ox4 at this time and answers all questions appropriately at this time. Care providers, pharmacy, and demographics verified at this time. Presentation: Pt c/o Abd Pain, N/V Admitting dx: Left ureteral stone, sepsis PCP: Don Specialists: Lila uro; HEENA Tyler Pharmacy: [facility] Insurance: [facility] Prescription Benefit: [facility] Living Will/HPOA: Pt states has LW but is not sure about HPOA and is aware that they are not on file at [facility] at this time. Pt states she will check on this once home. LNOK: Amadeo Rene, ; Hermann Rene, grandson Living Arrangements: Pt states lives with in 2 story home and states no concerns at home at this time. Pt states is independent with ADL's. Transportation: Pt states drives self and states no transportation concerns at this time. DME/HHC: Pt states has a rollator but no other DME and declines need for any further DME at this time. Pt states hx of HHC in 2013 but declines hx of SNF at this time. Pt states no concerns with going home at time of discharge. Pt states is retired. Pt states does not smoke cigarettes or drink ETOH. Pt states no further concerns/needs at this time. CM to follow for any further discharge planning/needs. Advised pt to ask for CM if any further questions/concerns/needs arise, voices understanding. Pt Goal: Home Plan: [place] JACOB URENA
--- NOTE | 2020-07-12 12:14 | PCM.PN.GU ---
Physical Exam Subjective: Comfortable in bed, pain much improved, feeling better. [place]ett out and voiding well. - Physical Exam Vital Signs Temp 98.6 F 07/12/20 09:37 Pulse 76 07/12/20 09:37 Resp 18 07/12/20 09:37 BP 140/59 H 07/12/20 09:37 Pulse Ox 98 07/12/20 09:37 Intake & Output 07/10/20 07/11/20 07/12/20 23:59 23:59 23:59 Intake Total 1880 / 1880 2193.75 / 2193.75 Output Total 25 / 275 1400 / 1400 Balance 1855 / 1605 793.75 / 793.75 Weight: 66.678 kg 66.7 kg Intake: Oral 400 / 400 Intake, IV Amount 1880 / 1880 1793.75 / 1793.75 0.9% Normal Saline 1,000 ML @ 1000 / 1000 1000 mls/hr IV .Q1H [facility] Rx#: [id number] 0.9% Normal Saline 1,000 ML @ 1743.75 / 1743.75 125 mls/hr IV .Q8H [facility] Rx#: [id number] 0.9% Normal Saline 1,000 ML @ 830 / 830 150 mls/hr IV .Q6H40M [facility] Rx#: [id number] Ceftriaxone 2 GM In 0.9% Normal 50 / 50 Saline 50 ML @ 100 mls/hr IV Q24 [facility] Rx#:[id number] Ceftriaxone 2 GM In 0.9% Normal 50 / 50 Saline 50 ML @ 100 mls/hr IV X1 [facility] Rx#:[id number] Output: Urine 25 / 275 1400 / 1400 Other: Number of Bowel Movements 1 General: Alert, Oriented x3, Cooperative, No apparent distress HEENT: Atraumatic, Normocephalic Oral: Moist Mucosa Neck: Supple, Trachea Midline Lungs: Normal air movement Cardiovascular: Regular rate Abdomen: Soft, Non Tender Rectal: Exam deferred Skin: No rashes Musculoskeletal: No Muscle Wasting Neurological: Cranial nerves II-XII grossly intact Psych/Mental Status: Normal Affect Laboratory Tests Past 24 Hrs 07/11/20 07/11/20 07/11/20 13:31 13:31 13:31 WBC 41.0 H* RBC 6.06 H Hgb 16.5 H Hct 51.3 H MCV 84.7 MCH 27.2 MCHC 32.2 RDW Std Deviation 44.6 H RDW Coeff of Ramesh 14.6 Plt Count 191 MPV 9.6 Immature Gran % (Auto) 1.200 H Neut % (Auto) 82.6 H Lymph % (Auto) 2.4 L [place] % (Auto) 13.6 H Eos % (Auto) 0.0 Baso % (Auto) 0.2 Absolute Neuts (auto) 33.9 H Absolute Lymphs (auto) 0.97 Nucleated RBC % 0 Differential Comment Diff Path Review May foll Platelet Estimate ADEQUATE RBC Morphology NORM C+C PT 12.3 INR 1.0 APTT 22.5 L Sodium 137 Potassium 4.5 Chloride 102 Carbon Dioxide 31.0 Anion Gap 4 L BUN 23 H Creatinine 1.18 H Estim Creat Clear Calc 27.31 Est GFR (MDRD) Af Amer 57 L Est GFR (MDRD) Non-Af 47 L BUN/Creatinine Ratio 19.5 Glucose 144 H Lactic Acid Calcium 9.6 Total Bilirubin 1.00 AST 33 ALT 38 Alkaline Phosphatase 108 Total Protein 8.8 H Albumin 4.2 Globulin 4.6 H Albumin/Globulin Ratio 0.9 Lipase 144 Urine Color Urine Clarity Urine pH Ur Specific [place] Urine Protein Urine Glucose (UA) Urine Ketones Urine Occult Blood Urine Nitrite Urine Bilirubin Urine Urobilinogen Ur Leukocyte Esterase Urine RBC Urine WBC Ur Squamous Epith Cells Urine Bacteria Urine Mucus Stone Source Stone Size Stone Weight Stone Color 07/11/20 07/11/20 07/11/20 14:55 16:50 Unknown WBC RBC Hgb Hct MCV MCH MCHC RDW Std Deviation RDW Coeff of Ramesh Plt Count MPV Immature Gran % (Auto) Neut % (Auto) Lymph % (Auto) [place] % (Auto) Eos % (Auto) Baso % (Auto) Absolute Neuts (auto) Absolute Lymphs (auto) Nucleated RBC % Differential Comment Diff Path Review Platelet Estimate RBC Morphology PT INR APTT Sodium Potassium Chloride Carbon Dioxide Anion Gap BUN Creatinine Estim Creat Clear Calc Est GFR (MDRD) Af Amer Est GFR (MDRD) Non-Af BUN/Creatinine Ratio Glucose Lactic Acid 1.2 Calcium Total Bilirubin AST ALT Alkaline Phosphatase Total Protein Albumin Globulin Albumin/Globulin Ratio Lipase Urine Color Yellow Urine Clarity Clear Urine pH 7.0 Ur Specific [place] 1.005 Urine Protein 30 H Urine Glucose (UA) Normal Urine Ketones Negative Urine Occult Blood 10 H Urine Nitrite Negative Urine Bilirubin Negative Urine Urobilinogen Normal Ur Leukocyte Esterase Negative Urine RBC 0-5 SEEN Urine WBC 0-5 SEEN Ur Squamous Epith Cells 0 SEEN Urine Bacteria RARE Urine Mucus 0 SEEN Stone Source Pending Stone Size Pending Stone Weight Pending Stone Color Pending 07/12/20 07/12/20 06:15 06:15 WBC 22.3 H RBC 4.57 Hgb 12.2 Hct 40.3 MCV 88.2 MCH 26.7 L MCHC 30.3 L D RDW Std Deviation 48.8 H RDW Coeff of Ramesh 15.0 H Plt Count 155 MPV 10.2 Immature Gran % (Auto) 0.600 Neut % (Auto) 75.1 H Lymph % (Auto) 10.1 L [place] % (Auto) 13.6 H Eos % (Auto) 0.3 Baso % (Auto) 0.3 Absolute Neuts (auto) 16.7 H Absolute Lymphs (auto) 2.24 Nucleated RBC % 0 Differential Comment Diff Path Review May foll Platelet Estimate RBC Morphology PT INR APTT Sodium 140 Potassium 3.7 Chloride 108 H Carbon Dioxide 25.0 Anion Gap 7 BUN 23 H Creatinine 1.15 H Estim Creat Clear Calc 28.03 Est GFR (MDRD) Af Amer 58 L Est GFR (MDRD) Non-Af 48 L BUN/Creatinine Ratio 20.0 Glucose 83 Lactic Acid Calcium 8.3 L Total Bilirubin AST ALT Alkaline Phosphatase Total Protein Albumin Globulin Albumin/Globulin Ratio Lipase Urine Color Urine Clarity Urine pH Ur Specific [place] Urine Protein Urine Glucose (UA) Urine Ketones Urine Occult Blood Urine Nitrite Urine Bilirubin Urine Urobilinogen Ur Leukocyte Esterase Urine RBC Urine WBC Ur Squamous Epith Cells Urine Bacteria Urine Mucus Stone Source Stone Size Stone Weight Stone Color Medical Necessity - Tobacco Use Smoking Status: Never smoker Assessment/Plan All Active Problems Vomiting (Acute) Leukocytosis (Acute) Ureterolithiasis (Acute) Renal colic on left side (Acute) Continue antibiotics and supportive care she will follow up with me a week after discharge and we will arrange for definitive stone treatment and further evaluation.
[2020-07-12 15:10] VITALS: BP 127/65; PULSE 76; RESP 16; TEMP 36.6; O2SAT 98
[2020-07-12 20:42] VITALS: BP 131/67; PULSE 79; RESP 16; TEMP 36.7; O2SAT 97
[2020-07-13 02:23] VITALS: BP 138/55; PULSE 73; RESP 16; TEMP 36.8; O2SAT 96
[2020-07-13 06:18] LABS: Hematocrit 37.6 % (37-47); Hemoglobin 11.3 g/dL (12.0-15.0); Mean Corp Hgb Conc 30.1 g/dL (32-36); Mean Corpuscular Hgb 26.4 pg (27.0-32.0); Mean Corpuscular Volume 87.9 fL (81-99); Platelet Count 154 K/mm3 (150-450); RBC Distribution Width CV 14.6 % (11.6-14.6); RBC Distribution Width SD 47.4 fl (35.1-43.9); Red Blood Count 4.28 M/mm3 (4.2-5.4); White Blood Count 18.4 K/mm3 (4.4-11.0)
[2020-07-13] MEDS: 0.9% Normal Saline 1,000 ML 125 ML IV (06:22)
[2020-07-13 06:45] LABS: Anion Gap 3 (5-15); BUN 22 mg/dL (7-18); BUN/Creat Ratio 23.1 RATIO (10-20); Calcium,Total 8.1 mg/dL (8.5-10.1); Chloride 112 mmol/L (98-107); Creatinine, Serum 0.95 mg/dL (0.55-1.02); EST Glomerular Filtration Rate 60 mL/min (>60); Est Glom Filt Rate - Afr Amer 73 mL/min (>60); Estimated Creatinine Clearance 33.93 ml/min; Glucose 81 mg/dL (74-106); Magnesium 2.2 mg/dL (1.6-2.6); Potassium 3.8 mmol/L (3.5-5.1); Sodium Level 141 mmol/L (136-145)
--- NOTE | 2020-07-13 07:21 | PN_ITS ---
Patient Problems: Active and Suspected Problems Vomiting (Acute) Leukocytosis (Acute) Ureterolithiasis (Acute) Renal colic on left side (Acute) Reason for Visit: Nephrolithiasis Suspected acute pyelonephritis Subjective: Patient urine catheter was removed this a.m. Complains of burning sensation following discontinuation of catheter. Cultures (urine and blood )obtained on admission still pending Objective: GENERAL: cooperative HEENT: Atraumatic; EYES; Anicteric, Normal Conjunctiva NECK; supple, normal thyroid, RESPIRATORY: Diminished to auscultation CARDIOVASCULAR: Regular S1 S2, GI: Periumbilical tenderness : No Renal angle tenderness; EXTREMITIES: No edema, no clubbing, MUSCULOSKELETAL: no muscle waisting NEURO: Awake; no lateralizing signs. SKIN: No Rash PSYCH; Flat affect Vitals/I&O's: Vital Signs Temp Pulse Resp BP Pulse Ox 98.3 F 73 16 138/55 H 96 07/13/20 02:23 07/13/20 02:23 07/13/20 02:23 07/13/20 02:23 07/13/20 02:23 Oxygen Delivery Method Room Air Weight: 66.7 kg Body Mass Index (BMI) 28.7 Intake and Output for Last 24 Hours 07/11/20 07/12/20 07/13/20 23:59 23:59 23:59 Intake Total 1880 / 1880 3689.58 / 3939.58 1250 / 1250 Output Total 25 / 275 1650 / 1750 800 / 800 Balance 1855 / 1605 2039.58 / 2189.58 450 / 450 Laboratory Results 07/12/20 06:15: WBC 22.3 H, RBC 4.57, Hgb 12.2, Hct 40.3, MCV 88.2, MCH 26.7 L, MCHC 30.3 L D, RDW Std Deviation 48.8 H, RDW Coeff of Ramesh 15.0 H, Plt Count 155, MPV 10.2, Immature Gran % (Auto) 0.600, Neut % (Auto) 75.1 H, Lymph % (Auto) 10.1 L, [place] % (Auto) 13.6 H, Eos % (Auto) 0.3, Baso % (Auto) 0.3, Absolute Neuts (auto) 16.7 H, Absolute Lymphs (auto) 2.24, Nucleated RBC % 0, Diff Path Review February07/12/20 06:15: Sodium 140, Potassium 3.7, Chloride 108 H, Carbon Dioxide 25.0, Anion Gap 7, BUN 23 H, Creatinine 1.15 H, Estim Creat Clear Calc 28.03, Est GFR (MDRD) Af Amer 58 L, Est GFR (MDRD) Non-Af 48 L, BUN/Creatinine Ratio 20.0, Glucose 83, Calcium 8.3 L 07/13/20 05:37: WBC 18.4 H, RBC 4.28, Hgb 11.3 L, Hct 37.6, MCV 87.9, MCH 26.4 L , MCHC 30.1 L, RDW Std Deviation 47.4 H, RDW Coeff of Ramesh 14.6, Plt Count 154, MPV 10.0 07/13/20 05:37: Sodium 141, Potassium 3.8, Chloride 112 H, Carbon Dioxide 26.0, Anion Gap 3 L, BUN 22 H, Creatinine 0.95, Estim Creat Clear Calc 33.93, Est GFR (MDRD) Af Amer 73, Est GFR (MDRD) Non-Af 60, BUN/Creatinine Ratio 23.1 H, Glucose 81, Calcium 8.1 L, Magnesium 2.2 Current Medications Acetaminophen (Tylenol) 650 mg PO Q4H PRN PRN PRN Reason: fever, pain 1-10 Albuterol Sulfate (Ventolin Aerosols) 2.5 mg INHALATION Q2H PRN PRN PRN Reason: Dyspnea, wheezing Heparin Sodium (Porcine) (Heparin Na) 5,000 unit SC Q12 [facility] Last Admin: 07/12/20 20:50 Dose: 5,000 unit Documented by: Hydralazine HCl (Apresoline Iv) 10 mg IV Q4H PRN PRN PRN Reason: SBP > 160 Ceftriaxone Sodium 2 gm/ (Sodium Chloride) 50 mls @ 100 mls/hr IV Q24 [facility] Last Infusion: 07/12/20 10:36 Dose: Infused Documented by: Sodium Chloride () 1,000 mls @ 125 mls/hr IV .Q8H [facility] Last Admin: 07/13/20 06:22 Dose: 125 mls/hr Documented by: Labetalol HCl (Trandate) 50 mg PO BID [facility] Last Admin: 07/12/20 20:50 Dose: 50 mg Documented by: Morphine Sulfate () 2 - 4 mg IV Q4H PRN PRN PRN Reason: pain 6-10/10 Ondansetron HCl (Zofran) 4 mg IV Q6H PRN PRN PRN Reason: NAUSEA/VOMITING Oxycodone HCl (Oxyir) 5 mg PO Q4H PRN PRN PRN Reason: Pain Score 6-10/10 Pantoprazole Sodium (Protonix) 20 mg PO DAILY [facility] Last Admin: 07/12/20 09:41 Dose: 20 mg Documented by: Prednisone () 20 mg PO DAILY@0800 [facility] Last Admin: 07/12/20 09:41 Dose: 20 mg Documented by: Medical Necessity - Tobacco Use Smoking Status: Never smoker Assessment/Plan All Active Problems Vomiting (Acute) Leukocytosis (Acute) Ureterolithiasis (Acute) Renal colic on left side (Acute) Patient is an 80-year-old lady who presented with low back pain dysuria with associated nausea and vomiting. CT of the abdomen demonstrated Mild to moderate degree of left hydronephrosis and left hydroureter due to a 6 mm calculus at the left UV junction. There is also evidence of a 3.2 mm calculus in the distal left ureter. Patient was also found to have markedly elevated WBC count of 41. An assessment of sepsis secondary to suspected acute pyelonephritis as a result of nephrolithiasis made antibiotics initiated per protocol consultation placed to urology patient admitted to regular nursing floor. 1. Sepsis Secondary to suspected acute pyelonephritis from nephrolithiasis. Started on antibiotics cultures sent -07/13/2020: Seen continues to improve clinically. Urine and blood cultures obtained on admission still pending 2. Nephrolithiasis ?CT demonstrated Mild to moderate degree of left hydronephrosis and left hydroureter due to a 6 mm calculus at the left UV junction. There is also evidence of a 3.2 mm calculus in the distal left ureter consult was placed with Dr. Sharp patient underwent cystoscopy left ureteral stent insertion on 07/11/2020. 3. Essential hypertension ?Patient blood pressure was elevated on admission this was thought to be secondary to pain. Patient blood pressure has since stabilized 4. Renal insufficiency ?Patient on fluids monitoring electrolyte 5. 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 GERD ?EGD in 2019 apparently demonstrated severe esophagitis as well as intestinal metaplasia. Patient on PPI 7. DVT prophylaxis ?SC heparin Inpatient E&M: 30810 Subs Hosp L2
[2020-07-13 09:10] VITALS: BP 143/42; PULSE 78; RESP 18; TEMP 36.7; O2SAT 95
[2020-07-13] MEDS: predniSONE 20 MG Tablet PO (09:18)
[2020-07-13] MEDS: Heparin Injection (Vial) 5,000 UNIT/ML VIAL 5000 UNIT SC (09:18)
[2020-07-13] MEDS: Labetalol 100 MG Tablet 50 MG PO (09:18)
[2020-07-13] MEDS: Pantoprazole Sodium 20 MG Tablet PO (09:18)
--- NOTE | 2020-07-13 11:13 | DCINST_ITS ---
- Discharge Diagnoses Current Active Problems: Current Active and Chronic Problems Vomiting (Acute) Leukocytosis (Acute) Ureterolithiasis (Acute) Renal colic on left side (Acute) You will use the following diet at home:: No restrictions Allergies/Adverse Reactions: Allergies No Known Allergies Allergy (Verified 07/11/20 13:09) Medications to take at Discharge Clobetasol Propionate/Emoll [Clobetasol Emollient 0.05% Crm] 1 applic TP PRN PRN 07/11/20 Diphenoxylate HCl/Atropine [Lomotil 2.5-0.025 mg Tablet] 1 ea PO 4X/DAY PRN PRN 07/11/20 Labetalol [Trandate (Beta Ashley)] 50 mg PO BID 07/11/20 Multivit with Iron,Minerals [Complete Senior] 1 ea PO DAILY 07/11/20 Omeprazole 20 mg PO DAILY 07/11/20 Polyethylene Glycol 3350 [Miralax] 17 gm PO DAILY PRN PRN 07/11/20 Prednisone 20 mg PO DAILY 07/11/20 Acetaminophen [Tylenol Tablet] 650 mg PO Q4H PRN PRN tablet 07/13/20 Cefdinir 300 mg PO BID #14 cap 07/13/20 The following prescriptions were given: Cefdinir 300 mg PO BID #14 cap Transmission Status: Pending to [id number] Primary Care Physician: Aneta Stewart NP, [employer]PERATOR-C [NON-STAFF] - Please follow up with your Primary Care Physician in: in 1 week for BMP and CBC as outpatient Test Results: Test results from this visit will be discussed in further detail at your follow- up appointment, if applicable. Please Follow Up With: Briana Sharp MD When: 1 week Proposed Discharge Date: 07/13/20
--- NOTE | 2020-07-13 11:17 | PCM.DC.SUM ---
Discharge Date and Diagnosis - Problem List Patient Problems: Active and Suspected Problems Vomiting (Acute) Leukocytosis (Acute) Ureterolithiasis (Acute) Renal colic on left side (Acute) Date of Admission: 07/11/20 Date of Discharge: 07/13/20 - Primary Discharge Diagnosis Acute Problems: Active Problems Vomiting (Acute) Leukocytosis (Acute) Ureterolithiasis (Acute) Renal colic on left side (Acute) Hospital Course and Treatment Summary of Care Provided: Patient is an 80-year-old lady who presented with low back pain dysuria with associated nausea and vomiting. CT of the abdomen demonstrated Mild to moderate degree of left hydronephrosis and left hydroureter due to a 6 mm calculus at the left UV junction. There is also evidence of a 3.2 mm calculus in the distal left ureter. Patient was also found to have markedly elevated WBC count of 41. An assessment of sepsis secondary to suspected acute pyelonephritis as a result of nephrolithiasis made antibiotics initiated per protocol consultation placed to urology patient admitted to regular nursing floor. 1. Sepsis Secondary to suspected acute pyelonephritis from nephrolithiasis. Started on antibiotics cultures sent -07/13/2020: Seen continues to improve clinically. Urine and blood cultures obtained on admission still pending ?07/13/2020: Urine cultures came back positive for mixed organisms. Blood cultures had remained negative to date. Patient requested to be discharged. She was discharged home on cefdinir 3 mg p.o. twice daily for 7 days. She was instructed to follow-up with her PCP for repeat BMP and CBC 2. Nephrolithiasis ?CT demonstrated Mild to moderate degree of left hydronephrosis and left hydroureter due to a 6 mm calculus at the left UV junction. There is also evidence of a 3.2 mm calculus in the distal left ureter consult was placed with Dr. Sharp patient underwent cystoscopy left ureteral stent insertion on 07/11/2020. ?07/13/2020: Patient will follow-up with urology as outpatient 3. Essential hypertension ?Patient blood pressure was elevated on admission this was thought to be secondary to pain. Patient blood pressure has since stabilized 4. Renal insufficiency ?Patient on fluids monitoring electrolyte 5. 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 GERD ?EGD in 2019 apparently demonstrated severe esophagitis as well as intestinal metaplasia. Patient on PPI 7. DVT prophylaxis ?SC heparin Patient Problems: Active and Suspected Problems Vomiting (Acute) Leukocytosis (Acute) Ureterolithiasis (Acute) Renal colic on left side (Acute) - Physical Exam Vitals/I&O's: Vital Signs Temp Pulse Resp BP Pulse Ox 98.1 F 78 18 143/42 H 95 07/13/20 09:10 07/13/20 09:10 07/13/20 09:10 07/13/20 09:10 07/13/20 09:10 Oxygen Delivery Method Room Air Weight: 66.7 kg Body Mass Index (BMI) 28.7 Intake and Output for Last 24 Hours 07/11/20 07/12/20 07/13/20 23:59 23:59 23:59 Intake Total 1880 / 1880 3689.58 / 3939.58 1775.00 / 1775.00 Output Total 25 / 275 1650 / 1750 800 / 800 Balance 1855 / 1605 2039.58 / 2189.58 975.00 / 975.00 General: Alert HEENT: Atraumatic Lungs: Normal air movement Cardiovascular: Regular rate, Regular Rhythm Neurological: Neuro grossly intact Psych/Mental Status: Normal Affect Microbiology Past 72 Hours 07/11/20 14:55 Urine, Clean Catch Urine Culture - Final Mixed Gram Positive Organisms Laboratory Results 07/13/20 05:37: WBC 18.4 H, RBC 4.28, Hgb 11.3 L, Hct 37.6, MCV 87.9, MCH 26.4 L, MCHC 30.1 L, RDW Std Deviation 47.4 H, RDW Coeff of Ramesh 14.6, Plt Count 154, MPV 10.0 07/13/20 05:37: Sodium 141, Potassium 3.8, Chloride 112 H, Carbon Dioxide 26.0, Anion Gap 3 L, BUN 22 H, Creatinine 0.95, Estim Creat Clear Calc 33.93, Est GFR (MDRD) Af Amer 73, Est GFR (MDRD) Non-Af 60, BUN/Creatinine Ratio 23.1 H, Glucose 81, Calcium 8.1 L, Magnesium 2.2 Current Medications Acetaminophen (Tylenol) 650 mg PO Q4H PRN PRN PRN Reason: fever, pain 1-08/09 Albuterol Sulfate (Ventolin Aerosols) 2.5 mg INHALATION Q2H PRN PRN PRN Reason: Dyspnea, wheezing Heparin Sodium (Porcine) (Heparin Na) 5,000 unit SC Q12 [facility] Last Admin: 07/13/20 09:18 Dose: 5,000 unit Documented by: Hydralazine HCl (Apresoline Iv) 10 mg IV Q4H PRN PRN PRN Reason: SBP > 160 Ceftriaxone Sodium 2 gm/ (Sodium Chloride) 50 mls @ 100 mls/hr IV Q24 [facility] Last Infusion: 07/13/20 10:18 Dose: Infused Documented by: Sodium Chloride () 1,000 mls @ 125 mls/hr IV .Q8H [facility] Last Infusion: 07/13/20 10:10 Dose: 0 mls/hr Documented by: Labetalol HCl (Trandate) 50 mg PO BID [facility] Last Admin: 07/13/20 09:18 Dose: 50 mg Documented by: Morphine Sulfate () 2 - 4 mg IV Q4H PRN PRN PRN Reason: pain 6-10/10 Ondansetron HCl (Zofran) 4 mg IV Q6H PRN PRN PRN Reason: NAUSEA/VOMITING Oxycodone HCl (Oxyir) 5 mg PO Q4H PRN PRN PRN Reason: Pain Score 6-10/10 Pantoprazole Sodium (Protonix) 20 mg PO DAILY [facility] Last Admin: 07/13/20 09:18 Dose: 20 mg Documented by: Prednisone () 20 mg PO DAILY@0800 [facility] Last Admin: 07/13/20 09:18 Dose: 20 mg Documented by: Discharge Diet: No Restrictions Discharge Activity: No Restrictions Home Medications: Medications to take at Discharge Clobetasol Propionate/Emoll [Clobetasol Emollient 0.05% Crm] 1 applic TP PRN PRN 07/11/20 Diphenoxylate HCl/Atropine [Lomotil 2.5-0.025 mg Tablet] 1 ea PO 4X/DAY PRN PRN 07/11/20 Labetalol [Trandate (Beta Ashley)] 50 mg PO BID 07/11/20 Multivit with Iron,Minerals [Complete Senior] 1 ea PO DAILY 07/11/20 Omeprazole 20 mg PO DAILY 07/11/20 Polyethylene Glycol 3350 [Miralax] 17 gm PO DAILY PRN PRN 07/11/20 Prednisone 20 mg PO DAILY 07/11/20 Acetaminophen [Tylenol Tablet] 650 mg PO Q4H PRN PRN tablet 07/13/20 Cefdinir 300 mg PO BID #14 cap 07/13/20 Following Prescriptions Were Given to Patient: Cefdinir 300 mg PO BID #14 cap Transmission Status: Pending to [id number] Primary Care Physician: Aneta Stewart OPERATOR PREFINISH, OPERATOR PREFINISH-C [NON-STAFF] - Please follow up with your Primary Care Physician in: in 1 week for BMP and CBC as outpatient Please Follow Up With: Briana Sharp MD When: 1 week Disposition: Home Minutes spent on discharge:: 35 Patient Condition:: Stable Medical Necessity - Tobacco Use Smoking Status: Never smoker Meaningful Use Info Meaningful Use Diagnoses (Choose all that apply): None applicable Inpatient E&M: 79052 [facility]
[2020-07-14 14:20] LABS: Pathologist Review Reviewed
[2020-07-14 14:23] LABS: Pathologist Review Reviewed
== END 2020-07-13 11:55 | disposition home or self-care (01) | DRG 854 ==
LOC: ED 17:46 → MS3 18:31
PROVIDERS: Urology; Admitting Provider Internal Medicine; Emergency Provider Emergency Medicine; PCP Student in an Organized Health Care Education/Training Program; Visit Provider Internal Medicine
PROC: 0TCB8ZZ Extirpation of Matter from Bladder, Via Natural or Artificial Opening Endoscopic (ICD-10-PCS; principal; 2020-07-11 19:00)
DX: A41.9 Sepsis, unspecified organism (principal); N13.2 Hydronephrosis with renal and ureteral calculous obstruction; I16.0 Hypertensive urgency; B99.8 Other infectious disease; K21.0 Gastro-esophageal reflux disease with esophagitis; I10 Essential (primary) hypertension; Z79.52 Long term (current) use of systemic steroids; Z79.899 Other long term (current) drug therapy
CPT/HCPCS: 36415; 74177; 76000; 80048; 80053; 81001; 82360; 83605; 83690; 83735; 85025; 85027; 85610; 85730; 87040; 87086; 87088; 99285; J7030; Q9967; A4216; C2617; J0696; J2405

== ENCOUNTER 2020-08-05 06:44 | Day surgery (SDC) | payer MEDICARE, SELFPAY ==
[2020-07-11 18:32] VITALS: BMI 28.7
[2020-08-05 07:38] VITALS: BP 151/85; PULSE 85; RESP 16; TEMP 36.7; O2SAT 97; BMI 29.0
[2020-08-05] MEDS: Lactated Ringers 1,000 ML 100 ML IV ×2 (07:51→10:14)
--- NOTE | 2020-08-05 08:14 | OP.PCM_ITS ---
Problem List (1) Ureteral stone with hydronephrosis Status: Acute (2) Bladder stones Status: Acute Report of Operation Date of Procedure: 08/05/20 Pre-Operative Diagnosis: ureteral calculus with hydronephrosis, bladder calculae Post-Operative Diagnosis: same Surgery/Procedure Performed:: cystoscopy, left ureteral stent removal, left ureteroscopy, holmium laser lithotripsy, stone basket extraction, removal bladder stones Type of Anesthesia:: General Specimen's removed: Bladder stones, ureteral stone Description of Procedure: The patient is an 80-year-old female with an obstructing distal left ureteral calculus and multiple bladder stones. She presents for definitive management of the stones. Risks benefits and alternatives were discussed preoperatively including that of COVID-19. The patient was taken to the operating room and placed on the operating room table. Anesthesia monitored the head, neck, airway, IV access and vital signs throughout the case. Once anesthesia was appropriately ministered the patient was placed into dorsal lithotomy position was prepped and draped in usual sterile fashion. A cystourethroscopy was performed through the urethra under direct visualization. The indwelling left ureteral calculus was identified and removed without difficulty. 2 separate 0.035 glide wires were then inserted into the left renal pelvis through the ureteral orifice. One remained as a safety wire the other was used for insertion of the flexible ureteroscope. A left renal calculus was seen on CT scan and ureteroscopy was performed of the left renal pelvis. No stone was identified there. At this time the holmium laser was used to break the distal left ureteral stone into fragments which were then stone basket retrieved. The stone was approximately 8 mm in size. There were multiple larger fragments of stones within the urinary bladder and those were removed with the basket as well. The safety wire was used to reinsert a 6 Romanian 22 cm double-J stent with good curling in the renal pelvis as well as the urinary bladder. The remaining stones were irrigated with the TUR cystoscopy set and the remaining few were removed with the grasper. When all stones were removed from the bladder, the bladder was emptied and the case was terminated. The patient was awakened and taken to the recovery room in good condition. There were no complications during this procedure. The stones were sent for analysis. Grafts/Implants Used: 6x22 JJ stent - Complications none - Admit VTE Documentation VTE Present on Admission: Yes VTE Mechan Device Prophylaxis: SCD's VTE Pharm Prophylaxis ordered?: No Reason prophylaxis not ordered:: Treatment Not Indicated
[2020-08-05] MEDS: Cefazolin 2 GM in 0.9% Normal Saline 100 ML IV (08:16)
--- NOTE | 2020-08-05 08:16 | DCINST_ITS ---
Discharge Diet: No Restrictions Discharge Activity: May not drive while taking narcotic pain medications. Call your doctor if you observe: Fever of 101 or Higher, Inability to urinate, Inability to have a bowel movement Allergies/Adverse Reactions: Allergies adhesive tape Adverse Reaction (Verified 08/05/20 07:37) PT UNSURE OF REACTION surgical tape causes skin to dehiss from body on removal. Medications to take at Discharge Clobetasol Propionate/Emoll [Clobetasol Emollient 0.05% Crm] 1 applic TP PRN PRN 07/11/20 Diphenoxylate HCl/Atropine [Lomotil 2.5-0.025 mg Tablet] 1 ea PO 4X/DAY PRN PRN 07/11/20 Labetalol [Trandate (Beta Ashley)] 50 mg PO BID 07/11/20 Multivit with Iron,Minerals [Complete Senior] 1 ea PO DAILY 07/11/20 Omeprazole 20 mg PO DAILY 07/11/20 Acetaminophen [Tylenol Tablet] 650 mg PO Q4H PRN PRN tab 07/13/20 Cephalexin [Keflex] 500 mg PO Q12 3 Days #6 cap 08/05/20 Oxycodone HCl/Acetaminophen [Percocet 5/325] 2 tablet PO Q8H PRN PRN 7 Days #20 tablet 08/05/20 Phenazopyridine HCl [Pyridium] 100 mg PO Q8H PRN PRN #20 tab 08/05/20 The following prescriptions were given: Cephalexin [Keflex] 500 mg PO Q12 3 Days #6 cap Transmission Status: Pending to [facility] Oxycodone HCl/Acetaminophen [Percocet 5/325] 2 tablet PO Q8H PRN PRN 7 Days #20 tablet PRN Reason: Pain Transmission Status: Sent to [facility] Phenazopyridine HCl [Pyridium] 100 mg PO Q8H PRN PRN #20 tab PRN Reason: Bladder Spasm Transmission Status: Pending to [facility] Primary Care Physician: Matti Ochoa DO [Primary Care Provider] - Test Results: Test results from this visit will be discussed in further detail at your follow- up appointment, if applicable. Please Follow Up With: Briana Sharp MD When: call office for appt Proposed Discharge Date: 08/05/20
--- NOTE | 2020-08-05 08:35 | CALC_PTH ---
PATIENT: LELA SCHILLING LOC: [facility] – [place] U#:[id number] AGE/SX: 80/F ROOM: RE08/05/[address]: Dr. Briana Sharp MD : [id number] BED: DIS: 08/05/2020 SPEC #: [id number] RECD: 08/05/20 10:17 STATUS: MANDO STEFANIA #: [id number] CRISELDA: 08/05/20 08:[address]: Briana Sharp DEPT: SURGICAL PATHOLOGY RECD BY: Donita Reveles ENTERED: 08/05/20 10:28 SP TYPE: Calculi OTHR DR: Dr. Matti Ochoa DO Tissues: CALCULI Procedures: Surgery Specimen Level I HEADER OPERATION: Cystoscopy, ureteroscopy, laser lithotripsy, ureteral stent PRE-OP DIAGNOSIS: Hydronephrosis with renal and ureteral calculi, calculi bladder, low back pain TISSUE SUBMITTED: Calculi GROSS DIAGNOSIS Ureteral calculus, removal: Unremarkable calculi (gross diagnosis only). AM:piotr 08/06/20 COMMENT The calculus is submitted in its entirety for chemical stone analysis. The results from this study will be reported separately. GROSS DESCRIPTION Received is one container labeled with the patient's name and designated ureteral calculi. The specimen consists of multiple irregular fragments of dark esparza calculi that in aggregate measure 1 x 1 x 0.2 cm. The calculus is submitted in its entirety for chemical stone analysis. / AM:piotr 08/05/20 CPT: 14557
[2020-08-05 10:06] VITALS: BP 133/69; BP 151/85; PULSE 80; RESP 16; TEMP 36.2; O2SAT 98
[2020-08-05 10:15] VITALS: BP 141/80; BP 151/85; PULSE 80; RESP 16; O2SAT 95
[2020-08-05 10:27] VITALS: BP 137/82; BP 151/85; PULSE 80; RESP 16; TEMP 36.1; O2SAT 97
[2020-08-05 11:30] VITALS: BP 133/76; BP 151/85; PULSE 78; RESP 16; TEMP 36.6; O2SAT 95
== END 2020-08-05 11:59 | disposition home or self-care (01) ==
LOC: SDC 06:45 → AC 06:45
PROVIDERS: Anesthesiology; PCP Student in an Organized Health Care Education/Training Program; Referring Provider Urology; Visit Provider Urology
PROC: 0TJ98ZZ Inspection of Ureter, Via Natural or Artificial Opening Endoscopic (ICD-10-PCS; CPT 52352; principal; 2020-08-05 08:25)
DX: N13.2 Hydronephrosis with renal and ureteral calculous obstruction (principal); N21.0 Calculus in bladder; K21.9 Gastro-esophageal reflux disease without esophagitis; I10 Essential (primary) hypertension; Z11.59 Encounter for screening for other viral diseases; Z79.51 Long term (current) use of inhaled steroids; Z79.899 Other long term (current) drug therapy
CPT/HCPCS: 52356; 76000; 82360; 87635; 88300; C9803; J7120; C2625; J2405; U0003